=== PATIENT | male | born 1940 | race Caucasian/White ===

== ENCOUNTER 2016-10-25 13:29 | Inpatient (IN) ==
--- NOTE | 2016-10-25 14:38 | Emergency Department Note ---
Disposition Clinical Impression: Hypoxemia Pneumonia Qualifiers: Pneumonia type: due to unspecified organism Laterality: left Lung location: upper lobe of lung Qualified Code(s): J18.1 - Lobar pneumonia, unspecified organism Disposition: Admitted As Inpatient General Adult HPI - General Chief complaint: ED Recheck/Abnormal Lab/Rx Stated complaint: Elevated Trop Time Seen by Provider: 10/25/16 13:50 Source: patient, EMS Limitations: no limitations Nursing Notes Reviewed: Yes Vital Signs Reviewed: Yes - History of Present Illness HPI Narrative: Patient presents from the [place] with a diagnosis of upper lobe pneumonia and he has had weakness and fatigue for the last several weeks which is constant and progressively worsening and then did have a visit to the [place] and they did diagnose a fever there with a temperature of 102 degrees. Does have some dry cough. No hemoptysis. No dysuria or urinary frequency. [facility] the patient's [facility] level was elevated. The patient is here with his daughter. Social history: No smoking or alcohol Pain Scale: 0 - Related Data Home Medications Medication Instructions Recorded Confirmed Acetaminophen [Tylenol] 650 mg PO Q6HR PRN 10/25/16 10/25/16 Amlodipine Besylate 2.5 mg PO DAILY 10/25/16 10/25/16 Aspirin 81 mg PO DAILY 10/25/16 10/25/16 Cetirizine HCl [Zyrtec] 10 mg PO DAILY 10/25/16 10/25/16 Cholecalciferol (Vitamin D3) 2,000 unit PO DAILY 10/25/16 10/25/16 [Vitamin D] FluocinoNIDE 0.05% CRM [Lidex] 1 appl TP BID 10/25/16 10/25/16 Insulin ASPART [Novolog Flexpen] 18 unit SQ QAM 10/25/16 10/25/16 Insulin ASPART [Novolog Flexpen] 20 unit SQ 1200 10/25/16 10/25/16 Insulin ASPART [Novolog Flexpen] 22 unit SQ QPM 10/25/16 10/25/16 Insulin Glargine [Lantus] 80 unit SQ BID 10/25/16 10/25/16 Lisinopril [Zestril] 40 mg PO DAILY 10/25/16 10/25/16 Magnesium Oxide [Magnesium] 400 mg PO DAILY 10/25/16 10/25/16 Metformin HCl [Metformin HCl ER] 1,000 mg PO BID 10/25/16 10/25/16 Metoprolol [Lopressor] 75 mg PO BID 10/25/16 10/25/16 Pantoprazole Sodium [Protonix] 40 mg PO DAILY 10/25/16 10/25/16 Potassium Chloride Elixir 30 ml PO DAILY 10/25/16 10/25/16 [Potassium Chloride] Potassium Citrate [Urocit-K] 10 meq PO DAILY 10/25/16 10/25/16 Pravastatin Sodium [Pravachol] 20 mg PO DAILY 10/25/16 10/25/16 Tamsulosin HCl [Flomax] 0.4 mg PO DAILY 10/25/16 10/25/16 hydroCHLOROthiazide 25 mg PO DAILY 10/25/16 10/25/16 [Hydrochlorothiazide] Allergies Allergy/AdvReac Type Severity Reaction Status Date / Time No Known Allergies Allergy Verified 10/25/16 14:05 Review of Systems: Constitutional: No fever Vision: No blurred vision ENT: No rhinorrhea Respiratory: + cough Allergic: No allergies : No blood in urine GI: No blood in stool Hematologic: No bruising Dermatologic: No skin rash Musculoskeletal: No pain in the extremities Neuro: No numbness of the extremities Past Medical History - Past Medical History Medical history: Reports: diabetes, hyperlipidemia, hypertension, kidney stones , myocardial infarction Psychiatric history: Reports: no psych history - Social History Smoking Status: Former smoker Smokeless Tobacco Status: No Alcohol use: Reports: none Drug use: Reports: none Physical Exam CONSTITUTIONAL: Alert and oriented X3, well-nourished, well appearing, in no apparent distress HEAD: Normocephalic; atraumatic. EYES: PERRL, no scleral icterus. NOSE: The nose is normal in appearance without rhinorrhea RESP: Normal chest excursion with respiration; breath sounds clear and equal bilaterally; no wheezes, rhonchi, or rales CARD: Regular rhythm, without murmurs, rub or gallop ABD: Non-distended; non-tender, soft,without rigidity, rebound or guarding SKIN: Normal for age and race; warm and dry; no apparent lesions - General Limitations: no limitations General appearance: alert, in no apparent distress Course Vital Signs Temperature 98.2 F 10/25/16 13:31 Pulse Rate 115 10/25/16 13:31 Respiratory Rate 22 10/25/16 13:31 Blood Pressure 140/90 10/25/16 13:31 O2 Sat by Pulse Oximetry 92 10/25/16 13:31 Temperature 98.2 F 10/25/16 13:31 Pulse Rate 96 10/25/16 15:20 Respiratory Rate 24 10/25/16 16:06 Blood Pressure 142/76 10/25/16 16:06 O2 Sat by Pulse Oximetry 96 10/25/16 15:20 Oxygen Delivery Oxygen Delivery Nasal Cannula Medical Decision Making - MDM Narrative Medical decision making narrative: We are repeating the troponin. I did review the patient's EKG from the [place] which does show some minimal lateral ST depression and then our EKG here which shows even more pronounced ST depression in leads V5 and V6 and for that reason the troponin will be repeated. I did review the previous records. The patient will be admitted to the hospital. The patient did receive 500 mg of azithromycin IV and I will add on Rocephin. Additionally he did receive acetaminophen and a IV fluid bolus 500 mL as well as by mouth potassium. I did review the patient's labs including a ABG and urinalysis. His white blood cell , was 13.4. His potassium was minimally decreased at 2.9. Did have some hyperglycemia 197 and the creatinine was 1.2. The patient was hypoxic with a saturation of 90% and he did have a x-ray showing a left upper lobe pneumonia. The patient will be admitted to the hospital. [id number] Patient will be admitted for pneumonia. I did speak with the hospitalist physician who accepts the patient for admission. The patient did have Rocephin added on the Zithromax. I did review the previous record. Troponin is rechecked here and is negative. The potassium level is improved and 3.2 compared to 2.9 previous. 1615 - Lab Data Result diagrams: 10/25/16 14:20 Lab Results 10/25/16 10/25/16 Range/Units 14:20 14:20 Sodium 131 L (136-145) mEq/L Potassium 3.2 L (3.5-4.5) mEq/L Chloride 90 L (98-109) mEq/L Carbon Dioxide 28 (19-29) mEq/L BUN 25 (8-26) mg/dL Creatinine 1.18 (0.72-1.25) mg/dL Est GFR ( Amer) > 60 (> 60) Est GFR (Non-Af Amer) > 60 (> 60) BUN/Creatinine Ratio 21 (6-26) Glucose 215 H (70-99) mg/dL Calculated Osmolality 283 (280-300) Calcium 8.0 L (8.6-10.8) mg/dL Troponin I 0.03 (0-0.03) ng/mL
[2016-10-25 14:48] LABS: BUN/Creatinine Ratio 21 (6-26); Blood Urea Nitrogen 25 mg/dL (8-26); Carbon Dioxide 28 mEq/L (19-29); Chloride 90 mEq/L (98-109); Glucose 215 mg/dL (70-99); Osmolality,Calculated 283 (280-300); Potassium 3.2 mEq/L (3.5-4.5); Sodium 131 mEq/L (136-145); eGFR For African Americans > 60 (> 60); eGFR For Non-African Americans > 60 (> 60)
[2016-10-25] MEDS ORDERED: Naloxone 0.4 MG/ML INJ IVP PRN (16:42)
[2016-10-25] MEDS ORDERED: D5% in Water 1,000 ML IVC PRN (16:48)
[2016-10-25] MEDS ORDERED: *HR* Dextrose 50 % in Water (Syg) 50 ML SYRINGE IVP PRN (16:48)
[2016-10-25] MEDS ORDERED: Dextrose Gel 15 GM PO PRN ×2 (16:48)
[2016-10-25] MEDS: Insulin LISPRO 300 UNITS/3 ML VIAL SQ SCH (17:40)
--- NOTE | 2016-10-25 17:41 | Internal Med History&Physical ---
Date of Encounter: 10/25/16 Time of Encounter: 17:37 Assessment and Plan (1) Pneumonia Current visit: Yes Status: Acute [place] chest x-ray with extensive left upper lobe opacity. Afebrile no fevers or chills. Azithromycin started at [place], Rocephin added and EGD. Does not appear toxic or acute. Urinary antigens, respiratory PCR, sputum culture and CBC pending. De-escalate ATB is clinically encouraged Qualifiers: Pneumonia type: due to unspecified organism Laterality: left Lung location: upper lobe of lung Qualified Code(s): J18.1 - Lobar pneumonia, unspecified organism (2) CAD (coronary artery disease), [place] coronary artery Current visit: Yes Status: Acute Per history with stent placed in 2014. Asymptomatic, denies chest pain. EKG with sinus tach. Troponin 0.082 at [place]. Repeat troponin 0.03 upon arrival to the ED. Cycle troponin. Continue home ASA, statin, beta angelica. Consult cardiology if needed Qualifiers: [place] vs. transplanted heart: [place] heart Associated angina: without angina Qualified Code(s): I25.10 - Atherosclerotic heart disease of [place] coronary artery without angina pectoris (3) Hypokalemia Current visit: Yes Status: Acute K2.9 at [place], received 20 MB queues potassium prior to transfer. Potassium 3.2 upon arrival, replace and monitor repeat CMP. (4) Hyponatremia Current visit: Yes Status: Acute Na 131, neurologically intact. Hold home HCTZ. Monitor repeat CMP (5) Essential hypertension Current visit: Yes Status: Acute per hx. BP controlled. Cont home BP medications. Monitor BP and titrate PRN (6) Diabetes mellitus Current visit: Yes Status: Acute per hx. Control unknown. Cont home insulin regimen. Monitor blood sugar and titrate PRN. Hgb A1c pending Qualifiers: Diabetes mellitus type: type 2 Diabetes mellitus complication status: with hyperglycemia Diabetes mellitus senior care insulin use: with senior care use Qualified Code(s): E11.65 - Type 2 diabetes mellitus with hyperglycemia; Z79.4 - FDC (current) use of insulin (7) MILO (obstructive sleep apnea) Current visit: Yes Status: Acute Suspected. Morbidly obese with BMI 44. Overnight sleep study pending (8) DVT prophylaxis Current visit: Yes Status: Acute Heparin Internal Medicine - H&P: HPI Chief complaint: transfer from [place] for elevated troponin Admitted From: Home Plans for Post Hospital Care: Home History of present illness: Mr. George is a 76 year old male with past medical history CAD, diabetes, hypertension, BPH who presented to the [place] on 10/25/2016 with complaints of not feeling well and generalized weakness. He was found to have left upper lobe pneumonia. Troponin was noted to be elevated and he was transferred to [facility] for further workup and treatment. Information obtained from chart review outside hospital records and patient report. Patient does not give details says he has been sick for about 9 days asked to elaborate any says he just felt sick, reports diffuse body aches, nausea vomiting. Says he feels better now that he has been able to sleep for a couple hours. No shortness of breath no chest pain. No fever no cough Past Med Surg Social Fam HX - Past Medical History Medical history: diabetes, hyperlipidemia, hypertension, kidney stones, myocardial infarction Psychiatric history: no psych history - Past Surgical History Surgical History: angioplasty/stent - Social History Smoking Status: Former smoker Smokeless Tobacco Status: No Alcohol use: none Drug use: none Internal Medicine - H&P: Meds Acetaminophen [Tylenol] 650 mg PO Q6HR PRN 10/25/16 [History] Amlodipine Besylate 2.5 mg PO DAILY 10/25/16 [History] Aspirin 81 mg PO DAILY 10/25/16 [History] Cetirizine HCl [Zyrtec] 10 mg PO DAILY 10/25/16 [History] Cholecalciferol (Vitamin D3) [Vitamin D] 2,000 unit PO DAILY 10/25/16 [History] FluocinoNIDE 0.05% CRM [Lidex] 1 appl TP BID 10/25/16 [History] Insulin ASPART [Novolog Flexpen] 18 unit SQ QAM 10/25/16 [History] Insulin ASPART [Novolog Flexpen] 20 unit SQ 1200 10/25/16 [History] Insulin ASPART [Novolog Flexpen] 22 unit SQ QPM 10/25/16 [History] Insulin Glargine [Lantus] 80 unit SQ BID 10/25/16 [History] Lisinopril [Zestril] 40 mg PO DAILY 10/25/16 [History] Magnesium Oxide [Magnesium] 400 mg PO DAILY 10/25/16 [History] Metformin HCl [Metformin HCl ER] 1,000 mg PO BID 10/25/16 [History] Metoprolol [Lopressor] 75 mg PO BID 10/25/16 [History] Pantoprazole Sodium [Protonix] 40 mg PO DAILY 10/25/16 [History] Potassium Chloride Elixir [Potassium Chloride] 30 ml PO DAILY 10/25/16 [History] Potassium Citrate [Urocit-K] 10 meq PO DAILY 10/25/16 [History] Pravastatin Sodium [Pravachol] 20 mg PO DAILY 10/25/16 [History] Tamsulosin HCl [Flomax] 0.4 mg PO DAILY 10/25/16 [History] hydroCHLOROthiazide [Hydrochlorothiazide] 25 mg PO DAILY 10/25/16 [History] Allergies No Known Allergies Allergy (Verified 10/25/16 14:05) All Systems PM: A 10-system review of systems was performed and is negative for pertinent findings except as documented above in the HPI. - Constitutional Constitutional: malaise, no chills, no fever(s), no night sweats - EENT Eyes: no change in vision, no discharge, no pain, no photophobia Ears: no ear discharge, no ear pain, no tinnitus Nose, mouth and throat: no dysphagia, no nasal discharge, no neck pain, no sore throat - Cardiovascular Cardiovascular ROS IM: no chest pain, no diaphoresis, no dyspnea, no lightheadedness, no palpitations, no syncope - Respiratory Respiratory: no cough, no dyspnea, no wheezing, no excessive phlegm production - Gastrointestinal Gastrointestinal: diarrhea, nausea, no abdominal pain, no hematemesis, no hematochezia, no melena, no vomiting - Musculoskeletal Musculoskeletal ROS IM: no numbness, no tingling - Integumentary Integumentary IM: no rash, no unusual bruising - Neurological Neurological ROS: no confusion, no convulsions, no focal weakness, no numbness, no tingling, no tremor(s) - Hematologic/Lymphatic Hematologic/Lymphatic: no easy bruising - Constitutional Vitals: Temp Pulse Resp BP Pulse Ox 98.4 F 102 20 158/85 93 10/25/16 17:23 10/25/16 17:23 10/25/16 17:23 10/25/16 17:23 10/25/16 17:23 General appearance: Present: A&O X 3, no acute distress - Head Head exam: Present: atraumatic, normocephalic - Eye Eye exam: Present: PERRL, conjuntiva pink, sclera anicteric Pupils: Present: PERRL - Neck Neck exam general surgery: Present: supple, trachea midline. Absent: lymphadenopathy - Respiratory Respiratory exam: Present: CTAB. Absent: accessory muscle use, rales, rhonchi, wheezes - Cardiovascular Cardiovascular exam: Present: RRR, +S1, +S2, tachycardia. Absent: diastolic murmur, gallop, rubs, systolic murmur - GI/Abdominal GI/Abdominal exam: Present: normal bowel sounds, soft, no peritoneal signs. Absent: distended, tenderness Additional comments: obese - Extremities Exam Extremities exam: Present: warm, radial pulses palpable and symetrical. Absent : calf tenderness, cyanotic, pedal edema - Neurological Exam Neurological exam: Present: CN II-XII intact, oriented X3, no focal deficits. Absent: pronater drift, facial droop, speech deficit - Skin Skin exam: Present: dry, intact Internal Med - H&P Results - Labs CBC & Chem 7: 10/25/16 18:22 10/25/16 14:20
[2016-10-25 17:45] LABS: Hemoglobin A1C 7.8 %
[2016-10-25 18:28] LABS: Basophils % 0.3 %; Hemoglobin 13.4 g/dL (12.9-16.9); Immature Granulocytes % 1.7 % (0-4); Immature Platelets 8.4 % (1.1-6.1); Lymphocytes # 0.8 K/mcL (0.6-4.6); Lymphocytes % 5.6 %; Mean Corpuscular HGB Conc 34.4 g/dL (31.6-35.5); Mean Corpuscular Hemoglobin 30.3 pg (28.0-33.3); Mean Corpuscular Volume 88.2 fL (83.0-100.0); Mean Platelet Volume 10.4 fL (9.4-12.4); Monocytes # 1.5 K/mcL (0.0-1.3); Monocytes % 11.3 %; Neutrophils # 10.8 K/mcL (1.6-8.9); Platelet Count 215 K/mcL (140-400); Red Blood Count 4.42 M/mcL (4.19-5.50); Red Cell Distribution Width 13.2 % (11.5-14.5); Segmented Neutrophils % 81.1 %
[2016-10-25 18:42] LABS: Bilirubin,Urine Small (Negative); Blood,Urine Large (Negative); Clarity,Urine Clear (Clear); Color,Urine Yellow (Yellow); Glucose,Urine (UA) Normal (Normal); Ketones,Urine 40 mg/dL (Negative); Leukocyte Esterase,Urine Negative (Negative); Nitrite,Urine Negative (Negative); Protein,Urine >=300 mg/dL (Neg-Trace); Specific Gravity,Urine >= 1.030 (1.010-1.025)
[2016-10-25 18:51] LABS: Squamous Epithelial Cell,Urine Few per lpf (None-Few); WBC,Urine 0-3 per hpf (0-3)
[2016-10-25 18:52] LABS: Bacteria,Urine Moderate per hpf (None-Few); Yeast,Urine Few per hpf (None Seen)
[2016-10-25] MEDS: Insulin DETEMIR 100 UNIT/ML X5UNITS SQ SCH (20:43)
[2016-10-25] MEDS ORDERED: Ringers Solution, Lactated 1,000 ML IVC SCH (21:15)
[2016-10-26] MEDS: *HR* Heparin 5,000 UNIT/ML VIAL SQ SCH ×3 (00:24→16:17)
[2016-10-26 05:53] LABS: Basophils % 0.2 %; Eosinophils % 0.1 %; Hematocrit 37.7 % (37.5-50.1); Hemoglobin 12.5 g/dL (12.9-16.9); Immature Granulocytes % 2.5 % (0-4); Lymphocytes # 0.9 K/mcL (0.6-4.6); Lymphocytes % 7.1 %; Mean Corpuscular HGB Conc 33.2 g/dL (31.6-35.5); Mean Corpuscular Hemoglobin 29.3 pg (28.0-33.3); Mean Corpuscular Volume 88.5 fL (83.0-100.0); Monocytes # 1.9 K/mcL (0.0-1.3); Monocytes % 14.5 %; Platelet Count 202 K/mcL (140-400); Red Blood Count 4.26 M/mcL (4.19-5.50); Red Cell Distribution Width 13.2 % (11.5-14.5); Segmented Neutrophils % 75.6 %
[2016-10-26 06:03] LABS: Alanine Aminotransferase 63 Units/L (0-55); Albumin 2.1 g/dL (3.5-5.0); Albumin/Globulin Ratio 0.5 (1.1-2.2); Alkaline Phosphatase 47 Units/L (38-126); Aspartate Amino Transferase 106 Units/L (5-34); BUN/Creatinine Ratio 23 (6-26); Bilirubin,Total 0.8 mg/dL (0.2-1.2); Blood Urea Nitrogen 22 mg/dL (8-26); Calcium 7.6 mg/dL (8.6-10.8); Carbon Dioxide 30 mEq/L (19-29); Chloride 91 mEq/L (98-109); Globulin 4.1 g/dL (2.4-3.5); Glucose 145 mg/dL (70-99); Osmolality,Calculated 280 (280-300); Sodium 132 mEq/L (136-145); Total Protein 6.2 g/dL (6.0-8.3); eGFR For African Americans > 60 (> 60); eGFR For Non-African Americans > 60 (> 60)
[2016-10-26] MEDS: Aspirin 81 MG TAB.CHEW PO SCH (07:48)
[2016-10-26] MEDS: amLODIPine 5 MG TABLET PO SCH (07:48)
[2016-10-26] MEDS: Lisinopril 20 MG TABLET PO SCH (07:48)
[2016-10-26] MEDS: Insulin DETEMIR 100 UNIT/ML X5UNITS SQ SCH ×2 (07:48→21:00)
[2016-10-26] MEDS ORDERED: Insulin LISPRO 300 UNITS/3 ML VIAL SQ SCH ×3 (09:00→21:00)
[2016-10-26] MEDS: Azithromycin 500 MG in D5% in Water 250 ML IVPB SCH (11:03)
--- NOTE | 2016-10-26 13:28 | Internal Med Progress Note ---
Date of Encounter: 10/26/16 Time of Encounter: 08:15 - Assessment and plan (1) Pneumonia Current Visit: Yes Status: Suspected Assessment and plan: WBC count remained stable. Patient is clinically feeling better. Continue IV antibiotics. Follow culture results. Moderate risk for complications Qualifiers: Pneumonia type: due to Pneumococcus Laterality: left Lung location: upper lobe of lung Qualified Code(s): J13 - Pneumonia due to Streptococcus pneumoniae (2) Hypoxemia Current Visit: Yes Status: Acute Assessment and plan: Continue O2 supplementation. Due to severe pneumonia. Wean FiO2 as tolerated. (3) Hypokalemia Current Visit: Yes Status: Acute Assessment and plan: Potassium levels remain low. We will continue to replete (4) CAD (coronary artery disease), [place] coronary artery Current Visit: Yes Status: Chronic Assessment and plan: Continue aspirin, statin, beta angelica and EVAN inhibitor. No chest pain. Qualifiers: [place] vs. transplanted heart: [place] heart Associated angina: without angina Qualified Code(s): I25.10 - Atherosclerotic heart disease of [place] coronary artery without angina pectoris (5) Essential hypertension Current Visit: Yes Status: Chronic Assessment and plan: The pressure is well controlled. No changes to current medication (6) Diabetes mellitus Current Visit: Yes Status: Chronic Assessment and plan: Blood sugars are fairly controlled. Continue to monitor and continue current insulin regimen. Qualifiers: Diabetes mellitus type: type 2 Diabetes mellitus complication status: with hyperglycemia Diabetes mellitus extermination inspector insulin use: with residential use Qualified Code(s): E11.65 - Type 2 diabetes mellitus with hyperglycemia; Z79.4 - extermination inspector (current) use of insulin (7) DVT prophylaxis Current Visit: Yes Status: Acute Assessment and plan: Continue heparin subcutaneous (8) Hyponatremia Current Visit: Yes Status: Acute Assessment and plan: Sodium 132. Continue to follow (9) MILO (obstructive sleep apnea) Current Visit: Yes Status: Chronic Assessment and plan: Use CPAP as needed - Subjective Interval history: Patient is feeling somewhat better today. He does still feel very weak and tired and complains of malaise and feeling run down. Denies any chest pain. Continues to have cough. No hemoptysis. - Constitutional Vitals: Temp Pulse Resp BP Pulse Ox 98.3 F 52 16 114/68 93 10/26/16 10:58 10/26/16 10:58 10/26/16 10:58 10/26/16 10:58 10/26/16 11:08 General appearance: Present: mild distress, A&O X 3, pleasant, obese, answers questions appropriately - Neck Neck exam general surgery: Present: supple, trachea midline. Absent: lymphadenopathy - Respiratory Respiratory exam: Present: CTAB. Absent: accessory muscle use, rales, rhonchi, wheezes Additional comments: Coarse breath sounds in left upper lobe - Cardiovascular Cardiovascular exam: Present: RRR, +S1, +S2. Absent: diastolic murmur, gallop, rubs, systolic murmur - GI/Abdominal GI/Abdominal exam: Present: normal bowel sounds, soft, no peritoneal signs. Absent: distended, tenderness - Extremities Exam Extremities exam: Present: warm, radial pulses palpable and symetrical. Absent : calf tenderness, cyanotic, pedal edema - Skin Skin exam: Present: dry, intact Internal Medicine: Result - Labs CBC & Chem 7: 10/26/16 05:31 10/26/16 05:31 Labs: Short CBC 10/25/16 10/26/16 Range/Units 18:22 05:31 WBC 13.3 H 13.2 H (4.3-11.1) K/mcL Hgb 13.4 12.5 L (12.9-16.9) g/dL Hct 39.0 37.7 (37.5-50.1) % Plt Count 215 202 (140-400) K/mcL Neutrophils # 10.8 H 10.0 H (1.6-8.9) K/mcL BMP 10/26/16 05:31 Sodium 132 L Potassium 3.0 L Chloride 91 L Carbon Dioxide 30 H BUN 22 Creatinine 0.96 Glucose 145 H Calcium 7.6 L Cardiac Enzymes 10/25/16 Range/Units 20:54 Troponin I 0.04 H* (0-0.03) ng/mL Liver Function 10/26/16 Range/Units 05:31 Total Bilirubin 0.8 (0.2-1.2) mg/dL AST 106 H (5-34) Units/L ALT 63 H (0-55) Units/L Alkaline Phosphatase 47 (38-126) Units/L Albumin 2.1 L (3.5-5.0) g/dL Urine 10/25/16 Range/Units 18:23 Urine Color Yellow (Yellow) Urine Clarity Clear (Clear) Urine pH 6.0 (5.0-8.0) pH Units Ur Specific [place] >= 1.030 H (1.010-1.025) Urine Protein >=300 H (Neg-Trace) mg/dL Urine Glucose (UA) Normal (Normal) mg/dL Consult Discharge Plan - Plan Referrals: [facility] [Primary Care Provider] - - Attending Attestation This document has been at least partially created by [employer] recognition technology by Dr. Kinney. Errors in grammar, wording or other phrases may exist. If errors are found after the documentation is signed, they will be addressed individually in the addendum section of this document when appropriate.
[2016-10-26] MEDS: 0.9 % Sodium Chloride 1,000 ML IVC SCH (13:58)
[2016-10-26 15:27] LABS: Adenovirus Not Detected (Not Detect); Bordetella Pertussis Not Detected (Not Detect); Chlamydophila pneumoniae Not Detected (Not Detect); Coronavirus 229E Not Detected (Not Detect); Coronavirus HKU1 Not Detected (Not Detect); Coronavirus NL63 Not Detected (Not Detect); Coronavirus OC43 Not Detected (Not Detect); Human Metapneumovirus Not Detected (Not Detect); Human Rhinovirus/Enterovirus Not Detected (Not Detect); Influenza A Subtype 2009 H1 Not Detected (Not Detect); Influenza A Untypeable Not Detected (Not Detect); Influenza B Not Detected (Not Detect); Mycoplasma pneumoniae Not Detected (Not Detect); Parainfluenza Virus 1 Not Detected (Not Detect); Parainfluenza Virus 2 Not Detected (Not Detect); Parainfluenza Virus 3 Not Detected (Not Detect); Parainfluenza Virus 4 Not Detected (Not Detect); Respiratory Syncytial Virus Not Detected (Not Detect)
[2016-10-26] MEDS: Insulin LISPRO 300 UNITS/3 ML VIAL SQ SCH (18:11)
[2016-10-27] MEDS: *HR* Heparin 5,000 UNIT/ML VIAL SQ SCH ×3 (00:12→16:49)
[2016-10-27 02:58] LABS: Basophils # 0.1 K/mcL (0.0-0.2); Basophils % 0.5 %; Eosinophils % 0.1 %; Hematocrit 40.7 % (37.5-50.1); Hemoglobin 13.4 g/dL (12.9-16.9); Immature Granulocytes % 3.3 % (0-4); Lymphocytes % 8.9 %; Mean Corpuscular HGB Conc 32.9 g/dL (31.6-35.5); Mean Corpuscular Hemoglobin 29.5 pg (28.0-33.3); Mean Corpuscular Volume 89.5 fL (83.0-100.0); Mean Platelet Volume 10.6 fL (9.4-12.4); Monocytes # 1.7 K/mcL (0.0-1.3); Neutrophils # 8.4 K/mcL (1.6-8.9); Platelet Count 226 K/mcL (140-400); Red Blood Count 4.55 M/mcL (4.19-5.50); Red Cell Distribution Width 13.2 % (11.5-14.5); Segmented Neutrophils % 72.2 %
[2016-10-27 03:17] LABS: BUN/Creatinine Ratio 23 (6-26); Blood Urea Nitrogen 21 mg/dL (8-26); Calcium 7.7 mg/dL (8.6-10.8); Carbon Dioxide 31 mEq/L (19-29); Chloride 95 mEq/L (98-109); Glucose 51 mg/dL (70-99); Osmolality,Calculated 284 (280-300); Potassium 2.7 mEq/L (3.5-4.5); Sodium 137 mEq/L (136-145); eGFR For African Americans > 60 (> 60); eGFR For Non-African Americans > 60 (> 60)
[2016-10-27] MEDS: 0.9 % Sodium Chloride 1,000 ML IVC SCH (04:09)
[2016-10-27] MEDS ORDERED: Potassium Chloride 40 MEQ, Lidocaine 1% 2 ML in D5% in Water 500 ML IVPB ONE (07:21)
[2016-10-27] MEDS ORDERED: Insulin LISPRO 300 UNITS/3 ML VIAL SQ SCH ×2 (07:30→10:29)
[2016-10-27] MEDS: Aspirin 81 MG TAB.CHEW PO SCH (08:08)
[2016-10-27] MEDS: amLODIPine 5 MG TABLET PO SCH (08:09)
[2016-10-27] MEDS: Lisinopril 20 MG TABLET PO SCH (08:09)
[2016-10-27] MEDS: Insulin DETEMIR 100 UNIT/ML X5UNITS SQ SCH ×2 (08:21→21:39)
--- NOTE | 2016-10-27 08:49 | Electrocardiograph Report ---
[place] [id number] Test Date: 2016-10-25 Pat Name: Vlad George Department: 102 Room: 2A12 Gender: M Ios Developer: Soo : 1940 Requested By: Mukesh Kinney Order Number: [id number] Reading MD: Pb Salgado DO Measurements Intervals [place] Rate: 111 P: -1 [place]: 116 QRS: -19 QRSD: 101 T: 32 QT: 330 QTc: 395 Interpretive Statements SINUS TACHYCARDIA WITH OCCASIONAL VENTRICULAR PREMATURE COMPLEXES NONSPECIFIC ST-T CHANGES Electronically Signed On 10-27-2016 8:48:04 EDT by Pb Salgado DO
--- NOTE | 2016-10-27 10:25 | Internal Med Progress Note ---
Date of Encounter: 10/27/16 Time of Encounter: 08:00 - Assessment and plan (1) Pneumonia Current Visit: Yes Status: Suspected Assessment and plan: Continue IV antibiotics. WBC count is improving. He continues to require O2 supplementation. Chest x-ray done yesterday reviewed shows multifocal pneumonia and left-sided pleural effusion. Patient was not exhibiting any signs of empyema at this time. Moderate risk for complications. Qualifiers: Pneumonia type: due to Pneumococcus Laterality: left Lung location: upper lobe of lung Qualified Code(s): J13 - Pneumonia due to Streptococcus pneumoniae (2) Hypoxemia Current Visit: Yes Status: Acute Assessment and plan: Continue O2 supplementation. Patient may require home oxygen. We will evaluate for this. (3) Hypokalemia Current Visit: Yes Status: Acute Assessment and plan: Potassium levels remain low. We will increase his supplemental dosages. (4) CAD (coronary artery disease), [place] coronary artery Current Visit: Yes Status: Chronic Assessment and plan: No chest pain. Continue aspirin, statin and beta angelica Qualifiers: [place] vs. transplanted heart: [place] heart Associated angina: without angina Qualified Code(s): I25.10 - Atherosclerotic heart disease of [place] coronary artery without angina pectoris (5) Essential hypertension Current Visit: Yes Status: Chronic Assessment and plan: Fairly controlled. Continue current antihypertensive regimen (6) Diabetes mellitus Current Visit: Yes Status: Chronic Assessment and plan: Blood sugars were low this morning. Will adjust insulin dosage. Qualifiers: Diabetes mellitus type: type 2 Diabetes mellitus complication status: with hyperglycemia Diabetes mellitus emt intermediate insulin use: with emt intermediate use Qualified Code(s): E11.65 - Type 2 diabetes mellitus with hyperglycemia; Z79.4 - prison (current) use of insulin (7) DVT prophylaxis Current Visit: Yes Status: Acute (8) Hyponatremia Current Visit: Yes Status: Resolved Assessment and plan: This has resolved with IV fluids (9) MILO (obstructive sleep apnea) Current Visit: Yes Status: Chronic Assessment and plan: Continue CPAP. - Subjective Interval history: Patient continues to slowly improve. He does feel weak and tired and has not been out of bed much. Denies any chest pain at this time. Continues to require O2 supplementation. Reports feeling very warm but some chills this morning but she did not have a fever then. - Constitutional Vitals: Temp Pulse Resp BP Pulse Ox 97.8 F 65 14 120/61 97 10/27/16 00:17 10/27/16 07:43 10/27/16 07:43 10/27/16 07:43 10/27/16 07:43 General appearance: Present: mild distress, A&O X 3, pleasant, obese, answers questions appropriately - Neck Neck exam general surgery: Present: supple, trachea midline. Absent: lymphadenopathy - Respiratory Respiratory exam: Present: CTAB. Absent: accessory muscle use, rales, rhonchi, wheezes Additional comments: Coarse breath sounds in the left upper and lower lobes - Cardiovascular Cardiovascular exam: Present: RRR, +S1, +S2. Absent: diastolic murmur, gallop, rubs, systolic murmur - Extremities Exam Extremities exam: Present: warm, radial pulses palpable and symetrical. Absent : calf tenderness, cyanotic, pedal edema - Neurological Exam Neurological exam: Present: alert, CN II-XII intact, oriented X3, no focal deficits. Absent: facial droop, speech deficit - Skin Skin exam: Present: dry, intact Internal Medicine: Result - Labs CBC & Chem 7: 10/27/16 02:43 10/27/16 02:43 Labs: Short CBC 10/27/16 Range/Units 02:43 WBC 11.6 H (4.3-11.1) K/mcL Hgb 13.4 (12.9-16.9) g/dL Hct 40.7 (37.5-50.1) % Plt Count 226 (140-400) K/mcL Neutrophils # 8.4 (1.6-8.9) K/mcL BMP 10/27/16 02:43 Sodium 137 Potassium 2.7 L Chloride 95 L Carbon Dioxide 31 H BUN 21 Creatinine 0.93 Glucose 51 L Calcium 7.7 L - Impressions Impressions Chest X-Ray 10/26/16 13:31 IMPRESSION: 1. Cardiomegaly. 2. Multilobar pneumonia on the left. No prior studies are available for direct comparison. There is a suspected small left pleural effusion. D/ / 10/26/2016 16:45:52 Elie Hoang MD / devan Interpreting Provider: Elie Hoang MD Consult Discharge Plan - Plan Referrals: [facility] [Primary Care Provider] - - Attending Attestation This document has been at least partially created by [employer] recognition technology by Dr. Kinney. Errors in grammar, wording or other phrases may exist. If errors are found after the documentation is signed, they will be addressed individually in the addendum section of this document when appropriate.
[2016-10-27] MEDS: Insulin LISPRO 300 UNITS/3 ML VIAL SQ SCH ×2 (11:44→16:49)
[2016-10-27] MEDS: Azithromycin 500 MG in D5% in Water 250 ML IVPB SCH (11:45)
[2016-10-28] MEDS: *HR* Heparin 5,000 UNIT/ML VIAL SQ SCH ×2 (01:19→08:04)
[2016-10-28 07:40] VITALS: BP 118/72
[2016-10-28] MEDS: Insulin LISPRO 300 UNITS/3 ML VIAL SQ SCH (07:40)
[2016-10-28] MEDS: Aspirin 81 MG TAB.CHEW PO SCH (08:01)
[2016-10-28] MEDS: Insulin DETEMIR 100 UNIT/ML X5UNITS SQ SCH (08:01)
[2016-10-28] MEDS: Lisinopril 20 MG TABLET PO SCH (08:01)
[2016-10-28] MEDS: amLODIPine 5 MG TABLET PO SCH (08:02)
[2016-10-28 08:41] LABS: Basophils # 0.1 K/mcL (0.0-0.2); Basophils % 0.6 %; Eosinophils % 0.2 %; Hematocrit 42.8 % (37.5-50.1); Hemoglobin 13.9 g/dL (12.9-16.9); Immature Granulocytes % 4.9 % (0-4); Lymphocytes # 1.1 K/mcL (0.6-4.6); Lymphocytes % 12.5 %; Mean Corpuscular HGB Conc 32.5 g/dL (31.6-35.5); Mean Corpuscular Hemoglobin 29.5 pg (28.0-33.3); Mean Corpuscular Volume 90.9 fL (83.0-100.0); Mean Platelet Volume 10.7 fL (9.4-12.4); Monocytes % 11.1 %; Neutrophils # 6.2 K/mcL (1.6-8.9); Platelet Count 299 K/mcL (140-400); Red Blood Count 4.71 M/mcL (4.19-5.50); Red Cell Distribution Width 13.4 % (11.5-14.5); Segmented Neutrophils % 70.7 %
[2016-10-28 08:49] LABS: BUN/Creatinine Ratio 21 (6-26); Blood Urea Nitrogen 16 mg/dL (8-26); Calcium 7.8 mg/dL (8.6-10.8); Carbon Dioxide 29 mEq/L (19-29); Chloride 97 mEq/L (98-109); Glucose 77 mg/dL (70-99); Osmolality,Calculated 286 (280-300); Potassium 3.3 mEq/L (3.5-4.5); Sodium 138 mEq/L (136-145); eGFR For African Americans > 60 (> 60); eGFR For Non-African Americans > 60 (> 60)
[2016-10-28] MEDS: Azithromycin 500 MG in D5% in Water 250 ML IVPB SCH (10:04)
--- NOTE | 2016-10-28 10:24 | Discharge Summary ---
Date of Encounter: 10/28/16 Time of Encounter: 08:10 - Discharge Diagnosis (1) Pneumonia Priority: Primary Status: Acute Qualifiers: Pneumonia type: due to unspecified organism Laterality: left Lung location: upper lobe of lung Qualified Code(s): J18.1 - Lobar pneumonia, unspecified organism (2) Hypoxemia Priority: Secondary Status: Acute (3) Hypokalemia Priority: Secondary Status: Acute (4) CAD (coronary artery disease), [place] coronary artery Priority: Secondary Status: Chronic Qualifiers: [place] vs. transplanted heart: [place] heart Associated angina: without angina Qualified Code(s): I25.10 - Atherosclerotic heart disease of [place] coronary artery without angina pectoris (5) Essential hypertension Priority: Secondary Status: Chronic (6) Diabetes mellitus Priority: Secondary Status: Chronic Qualifiers: Diabetes mellitus type: type 2 Diabetes mellitus complication status: with hyperglycemia Diabetes mellitus penitentiary insulin use: with terminal operator use Qualified Code(s): E11.65 - Type 2 diabetes mellitus with hyperglycemia; Z79.4 - terminal operator (current) use of insulin (7) DVT prophylaxis Priority: Secondary Status: Acute (8) Hyponatremia Priority: Secondary Status: Resolved (9) MILO (obstructive sleep apnea) Priority: Secondary Status: Chronic - Discharge Medications Prescriptions: hydroCHLOROthiazide [Hydrochlorothiazide] 12.5 mg PO DAILY #20 tablet levoFLOXacin [Levofloxacin] 750 mg PO DAILY #12 tablet Home Medications: Acetaminophen [Tylenol] 650 mg PO Q6HR PRN 10/25/16 [History] Amlodipine Besylate 2.5 mg PO DAILY 10/25/16 [History] Aspirin 81 mg PO DAILY 10/25/16 [History] Cetirizine HCl [Zyrtec] 10 mg PO DAILY 10/25/16 [History] Cholecalciferol (Vitamin D3) [Vitamin D3] 2,000 unit PO DAILY 10/25/16 [History] FluocinoNIDE 0.05% CRM [Lidex] 1 appl TP BID 10/25/16 [History] Insulin ASPART [Novolog Flexpen] 18 unit SQ QAM 10/25/16 [History] Insulin ASPART [Novolog Flexpen] 20 unit SQ 1200 10/25/16 [History] Insulin ASPART [Novolog Flexpen] 22 unit SQ QPM 10/25/16 [History] Insulin Glargine [Lantus] 80 unit SQ BID 10/25/16 [History] Lisinopril [Zestril] 40 mg PO DAILY 10/25/16 [History] Magnesium Oxide [Magnesium] 400 mg PO DAILY 10/25/16 [History] Metformin HCl [Metformin HCl ER] 1,000 mg PO BID 10/25/16 [History] Metoprolol [Lopressor] 75 mg PO BID 10/25/16 [History] Pantoprazole Sodium [Protonix] 40 mg PO DAILY 10/25/16 [History] Potassium Chloride Elixir [Potassium Chloride] 30 ml PO DAILY 10/25/16 [History] Potassium Citrate [Urocit-K] 10 meq PO DAILY 10/25/16 [History] Pravastatin Sodium [Pravachol] 20 mg PO DAILY 10/25/16 [History] Tamsulosin HCl [Flomax] 0.4 mg PO DAILY 10/25/16 [History] hydroCHLOROthiazide [Hydrochlorothiazide] 12.5 mg PO DAILY #20 tablet 10/28/16 [ Rx] levoFLOXacin [Levofloxacin] 750 mg PO DAILY #12 tablet 10/28/16 [Rx] Allergies/Adverse Reactions: Allergies No Known Allergies Allergy (Verified 10/25/16 14:05) Procedures/tests Complete & Pending: Procedures Performed prior 72 hours Category Date Time Status ECG 12 lead ECG [ECG] Routine Y 10/25/16 13:38 Completed Date of admission: 10/25/16 16:42 Primary care physician: [facility] Consults: 10/27/16 13:24 Consult to Occupational Therapy [CONS] Routine Comment: Evaluate, develop and implement POC Reason for Consult: Evaluate, develop and implement POC Consult to Physical Therapy [CONS] Routine Comment: Evaluate, develop and implement POC Reason for Consult: Evaluate, develop and implement POC Discharging clinician: Mukesh Kinney Anticipated date of discharge: 10/28/16 - Patient Status Disposition: Home, Self-Care Condition: Good Functional capacity at discharge: independent ambulation Overall status at discharge: patient is progressing back to baseline - Discharge Instructions Instructions: Pneumonia (DC) Follow Up With: [facility] [Primary Care Provider] - (in 1-2 weeks) - Diet and Activity Activity: increase activity as tolerated, wear oxygen at all times Diet: diabetic diet, low fat, low cholesterol, low salt diet Hospital course: Mr. George is a 76 year old male patient with history of diabetes mellitus type 2, hypertension, who was admitted here severe pneumonia involving the left upper lobe with hypoxia. He was treated with IV antibiotics and O2 supplementation. His pneumonia is improving clinically and his leukocytosis has resolved. He is stable to be discharged home on oral antibiotics. He does continue to require O2 supplementation given the severity of hypoxia and pneumonia. As such he will be prescribed home oxygen. He also had a mild elevation in his troponin most likely due to demand ischemia and hypoxia. Patient has also been hypokalemic and was also hyponatremic on admission, likely due to use of hydrochlorothiazide. His hyponatremia has resolved. His hypokalemia is improving. Patient does take potassium supplements at home. I recommend decreasing the dosage of hydrochlorothiazide or even stopping it at home. He will follow-up with his primary care provider at the [facility] for further management. He does need a follow-up x-ray to look for resolution of pneumonia in about 3-4 weeks. - Time Spent with Patient Total time spent providing and/or coordinating discharge services: Greater than 30 minutes (40 min) - Constitutional Vitals: Temp Pulse Resp BP Pulse Ox 97.6 F 60 18 118/72 93 10/28/16 07:32 10/28/16 07:32 10/28/16 07:32 10/28/16 07:32 10/28/16 08:10 General appearance: Present: cooperative, mild distress, A&O X 3, pleasant, obese, answers questions appropriately - Neck Neck exam general surgery: Present: supple, trachea midline. Absent: lymphadenopathy - Respiratory Respiratory exam: Absent: accessory muscle use, rales, rhonchi, wheezes Additional comments: Coarse breath sounds in left upper lobe - Cardiovascular Cardiovascular exam: Present: RRR, +S1, +S2. Absent: diastolic murmur, gallop, rubs, systolic murmur - GI/Abdominal GI/Abdominal exam: Present: normal bowel sounds, soft, no peritoneal signs. Absent: distended, tenderness - Extremities Exam Extremities exam: Present: warm, radial pulses palpable and symetrical. Absent : calf tenderness, cyanotic, pedal edema - Neurological Exam Neurological exam: Present: CN II-XII intact, oriented X3, no focal deficits. Absent: facial droop, speech deficit - Skin Skin exam: Present: dry, intact - Attending Attestation This document has been at least partially created by [email or web address] recognition technology by Dr. Kinney. Errors in grammar, wording or other phrases may exist. If errors are found after the documentation is signed, they will be addressed individually in the addendum section of this document when appropriate.
== END 2016-10-28 11:50 | disposition home or self-care (01) | DRG 194 ==
LOC: EMEROO 13:29 → 2ANU 13:29
PROVIDERS: ADMIT Registered Nurse; ATTEND Internal Medicine